=== PATIENT | male | born 1990 | race Caucasian/White ===

== ENCOUNTER 2022-08-29 17:06 | Emergency (ER) | payer OTHER ==
[~2022-08-29] VITALS: Ht 182.8 cm; Wt 88.5 kg
[~2022-08-29 17:06] MED LIST: AZIT500T2 PO; PRM50SU RC; SLMFT1E
[2022-08-29] MEDS ORDERED: LORazepam 0.5 MG (ATIVAN) TABLET PO ONE (18:30)
--- NOTE | 2022-08-29 18:34 | ED Abdominal Pain ---
General Chief Complaint: Abdominal/GI Problems Stated Complaint: CONSTIPATION Nursing Triage Note: PT AMB TO TRIAGE WITH COMPLAINT OF NOT BEING ABLE TO POOP. STATES HAS NOT HAD A GOOD BOWEL MOVEMENT FOR 3 WEEKS. STATES TOOK MIRALAX AND HAD A LITTLE BIT OF STOOL TODAY. STATES HAD BLOOD WORK AT [facility] AND WAS SENT TO ER FOR FURTHER EVALUATION Source of Information: Patient Exam Limitations: No Limitations (DARI GARCIA) History of Present Illness Date Seen by Provider: Aug 29, 2022 Time Seen by Provider: 18:31 Initial Comments Patient is a 32-year-old male who presents to ED with generalized abdominal pain. Described as cramping intermittently. States he has not had a good bowel movement over the past 3 weeks. patient had a small bowel movement this morning. Patient described as chicken nuggets. Patient states he has been taking MiraLAX, Dulcolax and even a suppository without much improvement. Typically MiraLAX will result in a small bowel movement. States he feels distended. Had lab work done 3 days ago which was unremarkable. Was recommended to the ER for further evaluation. Denies fever, chest pain, cough, shortness of breath, history inflammatory bowel disease, headache, dizziness, visual changes. Family history of cancer. Reports normal urination. Denies nausea, vomiting. Patient is able to produce some bowel movements but states it is hard (DARI GARCIA) Allergies and Home Medications Allergies Coded Allergies: No Known Drug Allergies (Unverified , 08/29/22) Patient Home Medication List Home Medication List Reviewed: Yes (DARI GARCIA) Review of Systems Review of Systems Constitutional: No chills, No diaphoresis, No malaise, No weakness EENTM: No Double Vision, No Eye Pain Respiratory: Denies Cough, Denies Orthopnea Cardiovascular: Denies Chest Pain Gastrointestinal: Abdominal Pain, Constipated; Denies Diarrhea, Denies Nausea, Denies Vomiting Genitourinary: Denies Burning, Denies Discharge Musculoskeletal: No back pain, No joint pain Skin: No change in color, No change in hair/nails Psychiatric/Neurological: Denies Depressed (DARI GARCIA) All Other Systems Reviewed Negative Unless Noted: Yes (DARI GARCIA) Past Utqvxow-Gmxblc-Wmgsgd Hx Patient Social History Tobacco Use?: No Use of E-Cig and/or Vaping dev: No Substance use?: No Alcohol Use?: No (DARI GARCIA) Physical Exam Vital Signs Vital Signs - First Documented 08/29/22 08/29/22 17:20 21:16 Temp 36.7 Pulse 122 Resp 20 B/P (MAP) 131/80 (97) Pulse Ox 97 O2 Delivery Room Air (BRUCE WELLSA Frank DO) Vital Signs Capillary Refill : Less Than 3 Seconds (DARI GARCIA) Height/Weight/BMI Height: '" Weight: lbs. oz. kg; 26.00 BMI Method: General Appearance: WD/WN, no apparent distress HEENT: PERRL/EOMI, normal ENT inspection, TMs normal, pharynx normal Neck: non-tender, full range of motion, supple Respiratory: chest non-tender, lungs clear, normal breath sounds, no respiratory distress, no accessory muscle use Cardiovascular: regular rate, rhythm, no edema Gastrointestinal: normal bowel sounds, non tender, soft, no organomegaly, other (Distended) Extremities: normal range of motion, non-tender, normal inspection, no pedal edema, no calf tenderness Back: normal inspection, no CVA tenderness, no vertebral tenderness ( DARI GARCIA) Progress/Results/Core Measures Results/Orders Lab Results Laboratory Tests Test 08/29/22 18:51 08/29/22 20:00 Range/Units White Blood Count 9.8 4.3-11.0 10^3/uL Red Blood Count 5.38 4.30-5.52 10^6/uL Hemoglobin 14.6 13.3-17.7 g/dL Hematocrit 45 40-54 % Mean Corpuscular Volume 83 80-99 fL Mean Corpuscular Hemoglobin 27 25-34 pg Mean Corpuscular Hemoglobin Concent 33 32-36 g/dL Red Cell Distribution Width 12.8 10.0-14.5 % Platelet Count 271 130-400 10^3/uL Mean Platelet Volume 9.7 9.0-12.2 fL Immature Granulocyte % (Auto) 0 % Neutrophils (%) (Auto) 74 42-75 % Lymphocytes (%) (Auto) 13 12-44 % Monocytes (%) (Auto) 10 0-12 % Eosinophils (%) (Auto) 2 0-10 % Basophils (%) (Auto) 1 0-10 % Neutrophils # (Auto) 7.2 1.8-7.8 10^3/uL Lymphocytes # (Auto) 1.3 1.0-4.0 10^3/uL Monocytes # (Auto) 1.0 0.0-1.0 10^3/uL Eosinophils # (Auto) 0.2 0.0-0.3 10^3/uL Basophils # (Auto) 0.1 0.0-0.1 10^3/uL Immature Granulocyte # (Auto) 0.0 0.0-0.1 10^3/uL Sodium Level 137 135-145 MMOL/L Potassium Level 3.9 3.6-5.0 MMOL/L Chloride Level 100 98-107 MMOL/L Carbon Dioxide Level 23 21-32 MMOL/L Anion Gap 14 5-14 MMOL/L Blood Urea Nitrogen 8 7-18 MG/DL Creatinine 0.88 0.60-1.30 MG/DL Estimat Glomerular Filtration Rate 119 BUN/Creatinine Ratio 9 Glucose Level 84 70-105 MG/DL Calcium Level 9.6 8.5-10.1 MG/DL Corrected Calcium 9.4 8.5-10.1 MG/DL Total Bilirubin 0.5 0.1-1.0 MG/DL Aspartate Amino Transf (AST/SGOT) 24 5-34 U/L Alanine Aminotransferase (ALT/SGPT) 24 0-55 U/L Alkaline Phosphatase 127 40-136 U/L Total Protein 7.7 6.4-8.2 GM/DL Albumin 4.2 3.2-4.5 GM/DL Lipase 42 8-78 U/L Urine Color YELLOW Urine Clarity CLEAR Urine pH 6.0 5-9 Urine Specific [place] 1.010 L 1.016-1.022 Urine Protein TRACE H NEGATIVE Urine Glucose (UA) NEGATIVE NEGATIVE Urine Ketones 2+ H NEGATIVE Urine Nitrite NEGATIVE NEGATIVE Urine Bilirubin 1+ H NEGATIVE Urine Urobilinogen 2.0 < = 1.0 MG/DL Urine Leukocyte Esterase NEGATIVE NEGATIVE Urine RBC (Auto) NEGATIVE NEGATIVE Urine RBC NONE /HPF Urine WBC NONE /HPF Urine Squamous Epithelial Cells NONE /HPF Urine Crystals NONE /LPF Urine Bacteria TRACE /HPF Urine Casts NONE /LPF Urine Mucus NEGATIVE /LPF Urine Culture Indicated NO (RUSSELL,JENS K DO) Vital Signs/I&O 08/29/22 08/29/22 17:20 21:16 Temp 36.7 Pulse 122 108 Resp 20 16 B/P (MAP) 131/80 (97) 123/78 Pulse Ox 97 98 O2 Delivery Room Air Room Air (JENS WELLS DO) Blood Pressure Mean: 97 Departure Communication (PCP) Patient presents ED with abdominal distention, decreased bowel movements and not feeling well. He states he has not been eating as much over the past several weeks. Has been using laxatives to help with bowel movements. Patient on arrival distended abdomen. Refused rectal exam. Difficulty initially obtaining lab work but did agree. States he had lab work performed few days ago which was unremarkable. Discussed lab work, CT abdomen pelvis secondary to distended abdomen. Denies any chest pain, cough, fever. No focal neural deficits. CBC, CMP, lipase unremarkable. Urinalysis was negative for infection. CT abdomen pelvis concerning for malignancy. Denies of any scrotum pain, scrotum swelling. 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 Patient was discussed with hospitalist Dr. Pierce regarding admission for further work-up. Would not be able to get a biopsy over the weekend. Patient was discussed with Dr. Lacey general surgeon. Would be willing to do a liver biopsy next week. He may need a CT-guided biopsy by radiology. Recommended following up on Thursday. Recommend liquid diet at this time. Patient refused anything for pain. May consider continue the laxatives however suspect most of his decreased bowel movements are secondary to the cancer. Did not note any large amount of stool. Dr. Lacey recommended adding a CEA. Recommend CT scan of the chest which was unremarkable for any metastasis. (DARI GARCIA) Impression Primary Impression: Abdominal malignancy Disposition: 01 HOME, SELF-CARE Condition: Stable Departure-Patient Inst. Decision time for Depature: 21:08 (DARI GARCIA) Referrals: DANELLE LACEY DO NO,LOCAL PHYSICIAN (PCP) Primary Care Physician Patient Instructions: Constipation, Adult (DC) Add. Discharge Instructions: Recommend following up with Dr. Lacey on Thursday. Provided number and discharge. Pain medication as needed. Continue with laxatives. Liquid diet. If any worsening symptoms return back to ED All discharge instructions reviewed with patient and/or family. Voiced understanding. ATTENDING PHYSICIAN NOTE: I WAS PHYSICALLY PRESENT ER PHYSICIAN, BUT I WAS NOT INVOLVED IN ANY DECISION MAKING OR ANY CARE OF THIS PATIENT AND I AM NOT COLLABORATING PHYSICIAN. (JENS WELLS DO) DARI GARCIA Aug 29, 2022 18:34 JENS WELLS DO Aug 30, 2022 07:05
[2022-08-29] MEDS ORDERED: NS 100 ML (IVPB) BAG IV ONE (18:45)
[2022-08-29] MEDS ORDERED: HOLD METFORMIN - RECEIVED CONTRAST 20 ML VIAL IV SCH (18:45)
[2022-08-29] MEDS ORDERED: IOHEXOL 350 MG/ML 100 ML (OMNIPAQUE 350) VIAL IV ONE (18:45)
[2022-08-29 18:58] LABS: BASOPHILS # (AUTO) 0.1 10^3/uL (0.0-0.1); BASOPHILS % (AUTO) 1 % (0-10); EOSINOPHILS # (AUTO) 0.2 10^3/uL (0.0-0.3); EOSINOPHILS % (AUTO) 2 % (0-10); HEMATOCRIT 45 % (40-54); HEMOGLOBIN 14.6 g/dL (13.3-17.7); LYMPHOCYTES # (AUTO) 1.3 10^3/uL (1.0-4.0); LYMPHOCYTES % (AUTO) 13 % (12-44); MEAN CORPUSCULAR HEMOGLOBIN 27 pg (25-34); MEAN CORPUSCULAR HGB CONC 33 g/dL (32-36); MEAN CORPUSCULAR VOLUME 83 fL (80-99); MEAN PLATELET VOLUME 9.7 fL (9.0-12.2); MONOCYTES % (AUTO) 10 % (0-12); NEUTROPHILS # (AUTO) 7.2 10^3/uL (1.8-7.8); NEUTROPHILS % (AUTO) 74 % (42-75); PLATELET COUNT 271 10^3/uL (130-400); WHITE BLOOD COUNT 9.8 10^3/uL (4.3-11.0)
[2022-08-29 19:07] LABS: ALBUMIN 4.2 GM/DL (3.2-4.5); POTASSIUM 3.9 MMOL/L (3.6-5.0)
[2022-08-29 19:09] LABS: CALCIUM 9.6 MG/DL (8.5-10.1)
[2022-08-29 19:10] LABS: TOTAL PROTEIN 7.7 GM/DL (6.4-8.2)
[2022-08-29 19:12] LABS: BILIRUBIN,TOTAL 0.5 MG/DL (0.1-1.0)
[2022-08-29 19:13] LABS: CREATININE SERUM 0.88 MG/DL (0.60-1.30)
--- NOTE | 2022-08-29 19:27 | Diagnostic Imaging Report ---
PROCEDURE: CT abdomen and pelvis with contrast. TECHNIQUE: Multiple contiguous axial images were obtained through the abdomen and pelvis after administration of intravenous contrast. Auto Exposure Controls were utilized during the CT exam to meet ALARA standards for radiation dose reduction. All CT scans use one or more of the following dose optimizing techniques: automated exposure control, MA and/or KvP adjustment based on patient size and exam type or iterative reconstruction. INDICATION: Abdominal pain COMPARISON: None FINDINGS: Extensive focal and confluent lesions throughout the spleen with large area of confluent mass measuring 8.7 x 12.1 cm (image 21 series 2). Multiple scattered hypodense lesions, approximately 10 lesions within the liver, largest measuring 1.2 cm. Extensive retroperitoneal and periportal lymphadenopathy with largest periportal lymph node measuring 3.3 x 2.1 cm and largest retroperitoneal lymph node measuring 2.9 x 2.2 cm. Enlarged left iliac chain lymph node measuring 2.4 x 1.5 cm. Enlarged presacral lymph nodes, largest measuring 2.2 x 2.0 cm. 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 The bowel is nondilated. There is thickening of the bowel at the ileocecal valve The urinary bladder is normal. The kidneys are normal. The aorta is normal. The pancreas is normal. The IVC is normal. The osseous structures demonstrate no lytic or sclerotic bone lesions. There is prominence of the seminal vesicles. The prostate is normal. IMPRESSION: Multiple lesions throughout the abdomen and pelvis concerning for cancer with possible metastatic disease or lymphoma. Extensive focal and confluent lesions throughout the spleen with largest confluent mass measuring 12.1 cm. Scattered approximately 10 small hypodense lesions throughout the liver concerning for metastatic lesions. Scattered lymphadenopathy throughout the abdomen and pelvis involving the periportal lymph nodes, retroperitoneal lymph nodes, left iliac chain lymph nodes, and presacral lymph nodes.. Diffuse thickening of the mesentery and moderate ascites concerning for peritoneal carcinomatosis. Thickening of small bowel in the region of the ileocecal valve may represent a small bowel mass or other infectious or inflammatory process. Enlargement of the seminal vesicles. Seminal vesicle mass cannot be excluded. Dictated by: Dictated on workstation # [id number]
[2022-08-29 20:10] LABS: CLARITY,URINE CLEAR; COLOR,URINE YELLOW; GLUCOSE, URINE (UA) NEGATIVE (NEGATIVE); KETONES,URINE 2+ (NEGATIVE); LEUKOCYTE ESTERASE ,URINE NEGATIVE (NEGATIVE); NITRITE,URINE NEGATIVE (NEGATIVE); PROTEIN,URINE TRACE (NEGATIVE)
[2022-08-29 20:22] LABS: BILIRUBIN,URINE 1+ (NEGATIVE)
[2022-08-29 20:23] LABS: BACTERIA,URINE TRACE /HPF
--- NOTE | 2022-08-29 20:39 | Diagnostic Imaging Report ---
PROCEDURE: CT chest with contrast only. TECHNIQUE: Multiple contiguous axial images were obtained through the chest after administration of intravenous contrast. Auto Exposure Controls were utilized during the CT exam to meet ALARA standards for radiation dose reduction. INDICATION: No pulmonary mass or consolidation. No airway lesions identified. No pleural mass, pleural effusion, or pneumothorax. 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 No lymphadenopathy within the chest. Normal heart size. No pericardial effusion. The osseous structures demonstrate no lytic or sclerotic bone lesion. Please see separately dictated report for findings in the abdomen or pelvis. Impression: No pulmonary mass or lymphadenopathy in the chest. 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 Please see separately dictated report for findings in the abdomen or pelvis. Dictated by: Dictated on workstation # [id number]
[2022-08-29 21:16] VITALS: BP 123/78
== END 2022-08-29 21:19 | disposition home or self-care (01) ==
LOC: EDUNIT# 17:06 → ER 17:10
DX: C76.2 Malignant neoplasm of abdomen (principal)
CPT/HCPCS: 36415; 71260; 74177; 80053; 81000; 82378; 83690; 85025

== ENCOUNTER 2022-09-02 11:43 | Day surgery (SDC) | payer OTHER ==
[~2022-09-02] VITALS: Ht 182.9 cm; Wt 85.7 kg
[2022-09-02] MEDS ORDERED: PROPOFOL INJECTION 50 ML IV ONE (14:15)
[2022-09-02] MEDS ORDERED: MIDAZOLAM 2 MG/2 ML (VERSED) VIAL ONE (14:15)
[2022-09-02] MEDS ORDERED: LACTATED RINGERS 1,000 ML IV ONE (14:24)
[2022-09-02] MEDS ORDERED: LACTATED RINGERS 1,000 ML IV STA (14:36)
[2022-09-02] MEDS ORDERED: FLEET ENEMA ADULT 1 EA BTL ONE (14:41)
[2022-09-02 14:44] VITALS: BP 130/102
[2022-09-02 14:45] VITALS: BP 113/63
--- NOTE | 2022-09-02 14:48 | Anesthesia-General Post-Op ---
MAC Patient Condition Mental Status/LOC: Same as Preop Cardiovascular: Satisfactory Nausea/Vomiting: Absent Respiratory: Satisfactory Pain: Controlled Complications: Absent Post Op Complications Complications None Follow Up Care/Instructions Patient Instructions None needed. Anesthesiology Discharge Order Discharge Order Patient is doing well, no complaints, stable vital signs, no apparent adverse anesthesia problems. No complications reported per nursing. DEBI RANKIN CRNA September 02, 2022 14:48
[2022-09-02 14:50] VITALS: BP 114/64
[2022-09-02 14:55] VITALS: BP 115/67
[2022-09-02 15:00] VITALS: BP 115/67
[2022-09-02 15:34] VITALS: BP 115/67
--- NOTE | 2022-09-02 22:04 | OPERATIVE REPORT ---
DATE OF SERVICE: 09/02/2022 PREOPERATIVE DIAGNOSES: Abdominal pain, abdominal masses. POSTOPERATIVE DIAGNOSIS: Extracolonic mass anterior to the rectum, rectal polyp. PROCEDURE: Flexible sigmoidoscopy with cold biopsy polypectomy. SURGEON: Danelle Brannon DO ANESTHESIA: Per EMPLOYMENT INTERVIEWER. ESTIMATED BLOOD LOSS: None. COMPLICATIONS: None. INDICATIONS: The patient is a 32-year-old male with abdominal masses, which had diffuse spread appearance by CAT scan. He also has abdominal pain, discussed trying to find pathology by flexible sigmoidoscopy, which he understands and wishes to proceed. Consent was signed in chart. DESCRIPTION OF PROCEDURE: The patient was taken to the endoscopy suite, placed in left lateral recumbent position. Timeout was performed. Digital rectal exam was performed anteriorly noting extracolonic palpable mass. Questionable if this was a prostatic from the prostate. Scope was inserted into the rectum and advanced through the rectum into the sigmoid, noting no other pathology. Scope was slowly retracted back, noting a rectal polyp, which cold biopsies were obtained and scope was then slowly retracted until completely removed. The patient tolerated the procedure well without complications. RECOMMENDATIONS: The patient is going for IR biopsy tomorrow possibly. If nothing obtainable, would then consider doing a rectal ultrasound-guided biopsy. Job ID: [id number] DocumentID: [id number] Dictated Date: 09/02/2022 14:53:07 Heatset Winder Operator Date: 09/02/2022 22:02:00 Dictated By: DANELLE BRANNON DO
== END 2022-09-02 15:34 | disposition home or self-care (01) ==
LOC: ENDO 11:43
PROVIDERS: ATTEND Surgery
DX: R10.9 Unspecified abdominal pain (principal); K62.1 Rectal polyp

== ENCOUNTER 2022-09-04 07:40 | Outpatient (CLI) | payer OTHER ==
[2022-09-04] VITALS (11 sets, daily range): BP systolic 113–132; BP diastolic 78–99
[2022-09-04] MEDS ORDERED: NS IV 1000 ML 1,000 ML IV STA (08:07)
[2022-09-04] MEDS ORDERED: fentaNYL INJ 100 MCG/2 ML AMP IVP ONE (08:15)
[2022-09-04] MEDS ORDERED: MIDAZOLAM 2 MG/2 ML (VERSED) VIAL IVP ONE (08:15)
[2022-09-04] MEDS ORDERED: NALOXONE 0.4 MG/ML 1 ML (NARCAN) VIAL IVP PRN (08:15)
[2022-09-04] MEDS ORDERED: LIDOCAINE 1% INJ 10 ML VIAL INJ ONE (08:15)
[2022-09-04] MEDS ORDERED: FLUMAZENIL (ROMAZICON) 0.1 MG/ML 10 ML VIAL IV ONE (08:15)
[2022-09-04 08:27] LABS: HEMATOCRIT 43 % (40-54); HEMOGLOBIN 14.2 g/dL (13.3-17.7); MEAN CORPUSCULAR HEMOGLOBIN 27 pg (25-34); MEAN CORPUSCULAR HGB CONC 33 g/dL (32-36); MEAN CORPUSCULAR VOLUME 82 fL (80-99); MEAN PLATELET VOLUME 10.4 fL (9.0-12.2); PLATELET COUNT 309 10^3/uL (130-400); WHITE BLOOD COUNT 9.5 10^3/uL (4.3-11.0)
[2022-09-04 08:42] LABS: INR 1.1 (0.8-1.4); PROTHROMBIN TIME PATIENT 14.2 SEC (12.2-14.7)
[2022-09-04] MEDS ORDERED: HYDROcodone/APAP 5 MG/325 MG (LORTAB) TAB PO PRN (10:15)
--- NOTE | 2022-09-04 10:20 | Pre-Op Note & Conscious Sedat ---
Pre-Operative Progress Note Date of Available H&P: September 04, 2022 Date H&P Reviewed: September 04, 2022 Time H&P Reviewed: 08:00 Pre-Op Diagnosis: abdominal mass Moderate Sedation PreProcedure Time 08:00 ASA Score 2 Airway Lungs Heart ASA score ASA 1: a normal healthy patient ASA 2: a patient with a mild systemic disease (mid diabetes, controlled hypertension, obesity ASA 3: a patient with a severe systemic disease that limits activity (angina, COPD, prior Myocardial infarction) ASA 4: a patient with an incapacitating disease that is a constant threat to life (CHF, renal failure) ASA 5: a moribund patient not expected to survive 24 hrs. (ruptured aneurysm) ASA 6: a declared brain- patient whose organs are being harvested. For emergent operations, add the letter E after the classification Mallampati Classification Grade 2 Sedation Plan Analgesia, Amnesia, Plan communicated to team members, Discussed options with patient/fam, Discussed risks with patient/fam The patient is an appropriate candidate to undergo the planned procedure, sedation, and anesthesia. The patient immediately re-assessed prior to indication. RUDY SLAUGHTER MD September 04, 2022 10:20
--- NOTE | 2022-09-04 10:41 | Diagnostic Imaging Report ---
INDICATION: Abdominal mass. Patient presents for CT-guided biopsy. TECHNIQUE: All CT scans use one or more of the following dose optimizing techniques: automated exposure control, MA and/or KvP adjustment based on patient size and exam type or iterative reconstruction. Patient brought to the CT suite placed on table in the supine position. Axial imaging through the abdomen and pelvis was performed evaluate appropriate entry site. Procedure was performed utilizing conscious sedation with radiology nursing and constant patient monitoring. Patient was given a total of 50 mg of fentanyl intravenously and 1 mg of Versed intravenously. Total procedure time is approximately 5 minutes. 18-gauge coaxial Temno needle was advanced from a right lower quadrant approach into the abnormal infiltrative process in the right abdomen, lateral to the colon. Multiple core biopsies were then obtained. The needle was removed and hemostasis was obtained using manual compression. Patient tolerated the procedure well and left department in stable condition. IMPRESSION: Successful CT-guided biopsy of the infiltrative masslike density in the right lower abdomen, utilizing conscious sedation. Pathology results are currently pending. Dictated by: Dictated on workstation # [id number]
== END 2022-09-04 12:25 | disposition home or self-care (01) ==
LOC: SDC 07:40
PROVIDERS: ATTEND Surgery
DX: R19.00 Intra-abdominal and pelvic swelling, mass and lump, unspecified site (principal)
CPT/HCPCS: 36415; 77012; 85027; 85610; 85730; 99156

== ENCOUNTER 2022-09-11 13:15 | Outpatient (CLI) | payer SELFPAY ==
[~2022-09-11] VITALS: Ht 182.8 cm; Wt 85.7 kg
== END 2022-09-11 15:53 | disposition home or self-care (01) ==
LOC: PREOP 13:15
PROVIDERS: ATTEND Surgery
DX: Z01.818 Encounter for other preprocedural examination (principal)

== ENCOUNTER 2022-09-12 10:07 | Day surgery (SDC) | payer OTHER ==
[~2022-09-12] VITALS: Ht 182.8 cm; Wt 85.7 kg
[2022-09-12] VITALS (7 sets, daily range): BP systolic 112–129; BP diastolic 77–90
[2022-09-12] MEDS ORDERED: LACTATED RINGERS 1,000 ML IV PRN (11:00)
[2022-09-12] MEDS ORDERED: ceFAZolin INJECTION 2,000 MG in NS (IVPB) 50 ML IV ONE (11:00)
[2022-09-12] MEDS ORDERED: BUP/EPI 0.5% 1:200,000 (SENSORCAINE) 30 ML VIAL ONE (11:10)
[2022-09-12] MEDS ORDERED: HEParin (CENTRAL IV FLUSH) 500 UNIT/5 ML SYR ONE (11:10)
[2022-09-12] MEDS ORDERED: 0.9% SODIUM CHLORIDE PF INJ 20 ML VIAL ONE (11:10)
[2022-09-12] MEDS ORDERED: MIDAZOLAM 2 MG/2 ML (VERSED) VIAL ONE (11:34)
[2022-09-12] MEDS ORDERED: PROPOFOL INJECTION 50 ML IV ONE (11:34)
--- NOTE | 2022-09-12 12:46 | Progress Note-Pre Operative ---
Pre-Operative Progress Note Date H&P Reviewed: September 12, 2022 Time H&P Reviewed: 12:45 History & Physical: H&P Reviewed, Patient Examed, No changes noted Pre-Operative Diagnosis: NEUROENDOCRINE TUMOR DANELLE LACEY DO September 12, 2022 12:46
--- NOTE | 2022-09-12 13:34 | Discharge Inst-Simple/Standard ---
Discharge Inst-Standard Patient Instructions/Follow Up Plan of Care/Instructions/FU: 2 weeks taylor Activity as Tolerated: No Discharge Diet: Regular Diet Other Inst to Patient Follow up Appt: Make appointment for 2 week. Instructions: No lifting greater than 10 pounds. No strenuous activity. May shower in 24 hours, no tub bath or soaking. Use incentive spirometer at home as directed. No Smoking Skin/Wound Care: You have special glue over your incision that will fall off on it's own. Ice pack on 15 min and off 30 min and repeat for first 48 hours. Symptoms to Report: Appetite Changes, Extremity Discoloration, Numbness/Tingling, Swelling Increased, Bleeding Excessive, Eyesight Changes, Pain Increased, Urine Color Change, Constipation(Persistent), Fever over 101 degree F, Pain/Pressure in chest, Urinating Difficulty, Cough Up/Vomit Blood, Heart Beat Irreg/Pounding, Pain/Pressure in jaw, Vaginal Bleeding Increase, Cramps in feet or legs, Lightheadedness, Pain/Pressure in shoulder, Diarrhea(Persistent), Memory Changes Suddenly, Questions/Concerns, Weight gain consecutive days, Dizziness/Fainting, Nausea/Vomiting, Shortness of Breath, Weight gain over 2 pounds If questions or concerns contact your physician Or seek help at emergency department. DANELLE LACEY DO September 12, 2022 13:34
--- NOTE | 2022-09-12 13:36 | Progress Note-Post Operative ---
Post-Operative Progess Note Surgeon (s)/Outdoor Landscape Architect (s) Surgeon DANELLE LACEY DO Outdoor Landscape Architect: na Pre-Operative Diagnosis NEUROENDOCRINE TUMOR Post-Operative Diagnosis same Procedure & Operative Findings Date of Procedure 09/12/22 Procedure Performed/Findings PROCEDURE: Right internal jugular port placement using ultrasound guidance. COMPLICATIONS: None. INDICATIONS: The patient is a 32 year old male with neuroendocrine tumor. Patient understands the risks and benefits of port placement and wished to proceed with the procedure. Consent was signed on the chart. PROCEDURE: The patient was taken to the operating suite, was prepped and draped in the sterile fashion. A surgical pause was performed. Ultrasound was used to locate the internal jugular vein. Once located anesthetic was infiltrated above it. Using micro-access kit, the right internal vein was accessed. Dark nonpulsatile blood was withdrawn. The wire was inserted. Fluoroscopy assured proper placement. The needle was removed. The micro-access dilator was advanced over the wire and the wire was removed. The regular wire was inserted and fluoroscopy assured proper placement. The wire was then secured. Local anesthetic was used to anesthetize from the neck for tunneling down to the right chest and for pocket creation. A 15 blade scalpel was used to make an incision over the right chest. Cautery was used to dissect down to the pectoral fascia. A pocket was created with blunt dissection. The dilator sheath was then advanced over the wire under fluoroscopy and the dilator and wire were removed. The Groshong catheter was inserted through the sheath and the sheath was then removed. The Groshong wire was removed. The catheter was then tunneled to the right chest pocket. Fluoroscopy was used to cut to length and this was then attached to the port which was then placed within the pocket. The port was then accessed without difficulty. It was then flushed with saline and then heparin. The subcutaneous tissues were then reapproximated using 3-0 Vicryl. The areas were then washed and dried. Skin Affix was placed over incision. The insertion point of the neck Skin Affix was placed over the incision. The patient tolerated the procedure well without complication and was taken to recovery room in stable condition. Chest x-ray is pending. Anesthesia Type mac c local Estimated Blood Loss Estimated blood loss (mL): minimal Specimens/Packing Specimens Removed DANELLE Kunz DO September 12, 2022 13:35
[2022-09-12] MEDS ORDERED: ONDANSETRON 4 MG/2 ML (SDV) Z0FRAN IVP PRN (13:45)
[2022-09-12] MEDS ORDERED: morphine INJ 10 MG/ML 1ML (SYR OR VIAL) IVP ONE (13:45)
--- NOTE | 2022-09-12 13:56 | Anesthesia-General Post-Op ---
MAC Patient Condition Mental Status/LOC: Same as Preop Cardiovascular: Satisfactory Nausea/Vomiting: Absent Respiratory: Satisfactory Pain: Controlled Complications: Absent Post Op Complications Complications None Follow Up Care/Instructions Patient Instructions None needed. Anesthesiology Discharge Order Discharge Order Patient is awake and doing well, no complaints, stable vital signs, no apparent adverse anesthesia problems. No complications reported per nursing. NILESH CHOWDARY DO September 12, 2022 13:56
--- NOTE | 2022-09-12 13:56 | Diagnostic Imaging Report ---
CHEST 1 VIEW, AP/PA ONLY INDICATION: s/p port. COMPARISON: None. FINDINGS: Support devices: Interval placement of right-sided portacatheter with tip projecting over the SVC. Lungs: Low lung volume. No focal consolidation. Stable pulmonary vasculature. Pleura: No pleural effusion or pneumothorax. Heart and Mediastinum: Cardiomediastinal silhouette and great vessels of the thorax are stable. Osseous Structures and Soft Tissues: No acute osseous abnormality. Normal soft tissues. IMPRESSION: No acute cardiopulmonary process. Dictated by: Dictated on workstation # [id number]
--- NOTE | 2022-09-12 16:05 | Diagnostic Imaging Report ---
INDICATION: Port placement. Single intraprocedural images right upper chest Fluoroscopy Time: 24.5 seconds FINDINGS: The hospital radiology department provided fluoroscopic imaging in support of an interventional procedure. No radiologist involvement and/or interpretation. Please reference the operating provider's procedure note. IMPRESSION: Intraprocedural technical imaging provided. Dictated by: Dictated on workstation # [id number]
== END 2022-09-12 14:44 | disposition home or self-care (01) ==
LOC: SDC 10:07
PROVIDERS: ATTEND Surgery
DX: C7A.1 Malignant poorly differentiated neuroendocrine tumors (principal); C80.0 Disseminated malignant neoplasm, unspecified
CPT/HCPCS: 36561; 71045; 76000; 87081; C1788

== ENCOUNTER 2022-09-30 09:53 | Outpatient (RCR) | payer MEDICAID, OTHER ==
[2022-09-10 14:31] LABS: BASOPHILS # (AUTO) 0.1 10^3/uL (0.0-0.1); BASOPHILS % (AUTO) 1 % (0-10); EOSINOPHILS # (AUTO) 0.2 10^3/uL (0.0-0.3); EOSINOPHILS % (AUTO) 2 % (0-10); HEMATOCRIT 44 % (40-54); HEMOGLOBIN 14.2 g/dL (13.3-17.7); LYMPHOCYTES # (AUTO) 0.9 10^3/uL (1.0-4.0); LYMPHOCYTES % (AUTO) 9 % (12-44); MEAN CORPUSCULAR HEMOGLOBIN 27 pg (25-34); MEAN CORPUSCULAR HGB CONC 32 g/dL (32-36); MEAN CORPUSCULAR VOLUME 83 fL (80-99); MEAN PLATELET VOLUME 9.8 fL (9.0-12.2); MONOCYTES # (AUTO) 0.9 10^3/uL (0.0-1.0); MONOCYTES % (AUTO) 9 % (0-12); NEUTROPHILS # (AUTO) 7.7 10^3/uL (1.8-7.8); NEUTROPHILS % (AUTO) 80 % (42-75); PLATELET COUNT 310 10^3/uL (130-400); WHITE BLOOD COUNT 9.7 10^3/uL (4.3-11.0)
[2022-09-10 14:51] LABS: ALBUMIN 3.9 GM/DL (3.2-4.5); BILIRUBIN,TOTAL 0.4 MG/DL (0.1-1.0); CREATININE SERUM 0.94 MG/DL (0.60-1.30); POTASSIUM 3.8 MMOL/L (3.6-5.0); TOTAL PROTEIN 7.1 GM/DL (6.4-8.2)
[2022-09-15 10:19] LABS: BASOPHILS # (AUTO) 0.1 10^3/uL (0.0-0.1); BASOPHILS % (AUTO) 1 % (0-10); EOSINOPHILS # (AUTO) 0.2 10^3/uL (0.0-0.3); EOSINOPHILS % (AUTO) 2 % (0-10); HEMATOCRIT 43 % (40-54); HEMOGLOBIN 13.8 g/dL (13.3-17.7); LYMPHOCYTES # (AUTO) 0.9 10^3/uL (1.0-4.0); LYMPHOCYTES % (AUTO) 8 % (12-44); MEAN CORPUSCULAR HEMOGLOBIN 27 pg (25-34); MEAN CORPUSCULAR HGB CONC 32 g/dL (32-36); MEAN CORPUSCULAR VOLUME 83 fL (80-99); MEAN PLATELET VOLUME 9.8 fL (9.0-12.2); MONOCYTES # (AUTO) 1.1 10^3/uL (0.0-1.0); MONOCYTES % (AUTO) 10 % (0-12); NEUTROPHILS # (AUTO) 8.9 10^3/uL (1.8-7.8); NEUTROPHILS % (AUTO) 80 % (42-75); PLATELET COUNT 322 10^3/uL (130-400); WHITE BLOOD COUNT 11.2 10^3/uL (4.3-11.0)
[2022-09-15 10:38] LABS: ALBUMIN 3.8 GM/DL (3.2-4.5); BILIRUBIN,TOTAL 0.4 MG/DL (0.1-1.0); CALCIUM 9.5 MG/DL (8.5-10.1); CREATININE SERUM 0.86 MG/DL (0.60-1.30); POTASSIUM 3.6 MMOL/L (3.6-5.0); TOTAL PROTEIN 7.2 GM/DL (6.4-8.2)
[2022-09-22 09:27] LABS: BASOPHILS # (AUTO) 0.1 10^3/uL (0.0-0.1); BASOPHILS % (AUTO) 1 % (0-10); EOSINOPHILS # (AUTO) 0.2 10^3/uL (0.0-0.3); EOSINOPHILS % (AUTO) 3 % (0-10); HEMATOCRIT 39 % (40-54); HEMOGLOBIN 12.7 g/dL (13.3-17.7); LYMPHOCYTES # (AUTO) 0.8 10^3/uL (1.0-4.0); LYMPHOCYTES % (AUTO) 15 % (12-44); MEAN CORPUSCULAR HEMOGLOBIN 27 pg (25-34); MEAN CORPUSCULAR HGB CONC 33 g/dL (32-36); MEAN CORPUSCULAR VOLUME 81 fL (80-99); MEAN PLATELET VOLUME 9.7 fL (9.0-12.2); MONOCYTES # (AUTO) 0.1 10^3/uL (0.0-1.0); MONOCYTES % (AUTO) 2 % (0-12); NEUTROPHILS # (AUTO) 4.1 10^3/uL (1.8-7.8); NEUTROPHILS % (AUTO) 78 % (42-75); PLATELET COUNT 216 10^3/uL (130-400); WHITE BLOOD COUNT 5.2 10^3/uL (4.3-11.0)
[2022-09-22 09:42] LABS: ALBUMIN 3.8 GM/DL (3.2-4.5); BILIRUBIN,TOTAL 0.4 MG/DL (0.1-1.0); CALCIUM 9.5 MG/DL (8.5-10.1); CREATININE SERUM 0.74 MG/DL (0.60-1.30); POTASSIUM 4.1 MMOL/L (3.6-5.0)
[~2022-09-30] VITALS: Ht 182.9 cm; Wt 85.3 kg
[~2022-09-30 09:53] MED LIST changes: +CARBOPLATIN IV SCH; +D5W IV SCH; +ETOPOSIDE IV SCH; +FOSAPREPITANT (CANCER CENTER) 150 MG in NS (IVPB) CANCER CENTER ONLY 150 ML IV SCH; +HEParin (CENTRAL IV FLUSH) 500 UNIT/5 ML SYR IV PRN; +NORMAL SALINE IV SCH; +NS IV 1000 ML (CANCER CTR) IV SCH; +PALONOSETRON HCL 0.25 MG, dexAMETHasone INJECTION 20 MG in NS (IVPB) 50 ML IV SCH; +dexAMETHasone INJECTION 20 MG in NS (IVPB) 50 ML IV SCH
[2022-09-30 10:16] LABS: BASOPHILS % (AUTO) 1 % (0-10); EOSINOPHILS # (AUTO) 0.1 10^3/uL (0.0-0.3); EOSINOPHILS % (AUTO) 3 % (0-10); HEMATOCRIT 38 % (40-54); HEMOGLOBIN 12.3 g/dL (13.3-17.7); LYMPHOCYTES # (AUTO) 0.7 10^3/uL (1.0-4.0); LYMPHOCYTES % (AUTO) 39 % (12-44); MEAN CORPUSCULAR HEMOGLOBIN 27 pg (25-34); MEAN CORPUSCULAR HGB CONC 33 g/dL (32-36); MEAN CORPUSCULAR VOLUME 83 fL (80-99); MEAN PLATELET VOLUME 9.7 fL (9.0-12.2); MONOCYTES # (AUTO) 0.2 10^3/uL (0.0-1.0); MONOCYTES % (AUTO) 11 % (0-12); NEUTROPHILS # (AUTO) 0.9 10^3/uL (1.8-7.8); NEUTROPHILS % (AUTO) 46 % (42-75); PLATELET COUNT 145 10^3/uL (130-400); WHITE BLOOD COUNT 1.8 10^3/uL (4.3-11.0)
[2022-09-30 10:42] LABS: BILIRUBIN,TOTAL 0.4 MG/DL (0.1-1.0); CALCIUM 9.5 MG/DL (8.5-10.1); CREATININE SERUM 0.84 MG/DL (0.60-1.30); POTASSIUM 3.8 MMOL/L (3.6-5.0); TOTAL PROTEIN 7.2 GM/DL (6.4-8.2)
== END 2022-10-01 | disposition home or self-care (01) ==
LOC: ONC 09:53
PROVIDERS: ATTEND Internal Medicine Hematology & Oncology
DX: Z51.11 Encounter for antineoplastic chemotherapy (principal); C7A.1 Malignant poorly differentiated neuroendocrine tumors
CPT/HCPCS: 36415; 36591; 80053; 83615; 84100; 84550; 85025; 96374; 96375; 96413; 96415

== ENCOUNTER → 2022-10-16 | Outpatient (CLI) | payer MEDICAID, OTHER ==
[~2022-10-16] MED LIST changes: -CARBOPLATIN IV SCH; -D5W IV SCH; -ETOPOSIDE IV SCH; -FOSAPREPITANT (CANCER CENTER) 150 MG in NS (IVPB) CANCER CENTER ONLY 150 ML IV SCH; -HEParin (CENTRAL IV FLUSH) 500 UNIT/5 ML SYR IV PRN; -NORMAL SALINE IV SCH; -NS IV 1000 ML (CANCER CTR) IV SCH; -PALONOSETRON HCL 0.25 MG, dexAMETHasone INJECTION 20 MG in NS (IVPB) 50 ML IV SCH; -dexAMETHasone INJECTION 20 MG in NS (IVPB) 50 ML IV SCH
--- NOTE | 2022-10-16 15:00 | Diagnostic Imaging Report ---
INDICATION: Initial staging, malignant neoplasm of the peritoneum. Serum blood glucose level at the time of injection is 84 mg/dL. Patient was administered 10.5 mCi F-18 FDG intravenously in the left hand, and PET imaging was performed from the top of the skull to mid thighs. Noncontrast CT was also performed for attenuation correction and anatomic correlation. COMPARISON: No prior PET/CT studies are available for comparison. Comparison is made with prior CT from 08/29/2022. FINDINGS: There is symmetric activity throughout the brain. Soft tissues of the neck are unremarkable. No mediastinal hypermetabolism is seen. There does appear to be a hypermetabolic right internal mammary lymph node with an SUV max of 11.1. Mild uptake in the left hilar node has an SUV max of 5.3. There is a hypermetabolic mass in the right lobe of the liver near the dome with an SUV max of 8.3. There is hypermetabolism in the lanette hepatis as well as diffuse uptake involving the peritoneum with SUV max of 10.1. There is central retroperitoneal hypermetabolic lymphadenopathy. Aortocaval node has an SUV max of 15.2. Diffuse uptake involving abnormal soft tissue surrounding the spleen is noted. Diffuse abnormal uptake throughout the omentum and throughout the right abdomen is seen with SUV max of approximately 12.8. There are hypermetabolic common iliac lymph nodes. There is a hypermetabolic right obturator node. IMPRESSION: Diffuse hypermetabolism involving the peritoneum including numerous enlarged lymph nodes in the lanette hepatis and central retroperitoneum. There is also hypermetabolic lymphadenopathy in the right internal mammary chain. There is a hypermetabolic lesion in the dome of the liver. Patient does have a small left pleural effusion. Dictated by: Dictated on workstation # [id number]
== END ==
LOC: RAD 10:39
PROVIDERS: ATTEND Internal Medicine Hematology & Oncology
DX: K76.9 Liver disease, unspecified (principal); J90 Pleural effusion, not elsewhere classified; C48.2 Malignant neoplasm of peritoneum, unspecified; R59.9 Enlarged lymph nodes, unspecified
CPT/HCPCS: 78815; 82947; A9552

== ENCOUNTER 2022-10-27 08:42 | Outpatient (RCR) | payer MEDICAID, OTHER ==
[~2022-10-27] VITALS: Ht 182.8 cm; Wt 80.8 kg
[~2022-10-27 08:42] MED LIST changes: +CYCLOPHOSPHAMIDE IV SCH; +DOXORUBICIN HCL IV SCH; +FOSAPREPITANT (CANCER CENTER) 150 MG in NS (IVPB) CANCER CENTER ONLY 150 ML IV SCH; +HEParin (CENTRAL IV FLUSH) 500 UNIT/5 ML SYR IV PRN; +MESNA IV SCH; +MESNA PO SCH; +NS IV 1000 ML (CANCER CTR) IV SCH; +NS IV SCH; +PALONOSETRON HCL 0.25 MG, dexAMETHasone INJECTION 10 MG in NS (IVPB) 50 ML IV SCH; +[UNRECOGNIZED DRUG - OTHER] IV SCH; +vinCRIStine SULFATE 2 MG in NS (IVPB) 50 ML IV SCH
[2022-10-27 09:40] LABS: BASOPHILS # (AUTO) 0.1 10^3/uL (0.0-0.1); BASOPHILS % (AUTO) 1 % (0-10); EOSINOPHILS # (AUTO) 0.5 10^3/uL (0.0-0.3); EOSINOPHILS % (AUTO) 6 % (0-10); HEMATOCRIT 40 % (40-54); HEMOGLOBIN 12.8 g/dL (13.3-17.7); LYMPHOCYTES # (AUTO) 0.9 10^3/uL (1.0-4.0); LYMPHOCYTES % (AUTO) 12 % (12-44); MEAN CORPUSCULAR HEMOGLOBIN 27 pg (25-34); MEAN CORPUSCULAR HGB CONC 32 g/dL (32-36); MEAN CORPUSCULAR VOLUME 83 fL (80-99); MEAN PLATELET VOLUME 9.6 fL (9.0-12.2); MONOCYTES # (AUTO) 0.7 10^3/uL (0.0-1.0); MONOCYTES % (AUTO) 9 % (0-12); NEUTROPHILS # (AUTO) 5.6 10^3/uL (1.8-7.8); NEUTROPHILS % (AUTO) 72 % (42-75); PLATELET COUNT 146 10^3/uL (130-400); WHITE BLOOD COUNT 7.8 10^3/uL (4.3-11.0)
[2022-10-27 09:51] VITALS: BP 126/84
[2022-10-27 09:58] LABS: ALBUMIN 4.1 GM/DL (3.2-4.5); BILIRUBIN,TOTAL 0.6 MG/DL (0.1-1.0); CALCIUM 9.4 MG/DL (8.5-10.1); CREATININE SERUM 0.75 MG/DL (0.60-1.30); TOTAL PROTEIN 7.1 GM/DL (6.4-8.2)
[2022-10-27 10:03] LABS: BILIRUBIN,URINE NEGATIVE (NEGATIVE); CLARITY,URINE CLEAR; COLOR,URINE YELLOW; GLUCOSE, URINE (UA) NEGATIVE (NEGATIVE); KETONES,URINE NEGATIVE (NEGATIVE); LEUKOCYTE ESTERASE ,URINE NEGATIVE (NEGATIVE); NITRITE,URINE NEGATIVE (NEGATIVE); PROTEIN,URINE TRACE (NEGATIVE)
[2022-10-27 10:13] LABS: AMORPHOUS SEDIMENT,UR LARGE AMOR PHOSPHATE /LPF; BACTERIA,URINE NEGATIVE /HPF; RBC,URINE RARE /HPF
[2022-10-27] MEDS ORDERED: OLANZapine 5 MG ODT (ZyPREXA ZYDIS) PO ONE (10:26)
== END 2022-10-31 | disposition home or self-care (01) ==
LOC: ONC 08:42
PROVIDERS: ATTEND Internal Medicine Hematology & Oncology
DX: Z51.11 Encounter for antineoplastic chemotherapy (principal); Z45.2 Encounter for adjustment and management of vascular access device; C7A.1 Malignant poorly differentiated neuroendocrine tumors
CPT/HCPCS: 36591; 80053; 81000; 85025; 96367; 96375; 96413; 96417

== ENCOUNTER 2022-11-17 08:47 | Outpatient (RCR) | payer MEDICAID, OTHER ==
[2022-11-03 09:55] LABS: EOSINOPHILS # (AUTO) 0.3 10^3/uL (0.0-0.3); HEMATOCRIT 36 % (40-54); MEAN CORPUSCULAR VOLUME 82 fL (80-99)
[2022-11-03 09:57] LABS: BASOPHILS % (AUTO) 2 % (0-10); EOSINOPHILS % (AUTO) 19 % (0-10); HEMOGLOBIN 11.4 g/dL (13.3-17.7); LYMPHOCYTES # (AUTO) 0.3 10^3/uL (1.0-4.0); LYMPHOCYTES % (AUTO) 20 % (12-44); MEAN CORPUSCULAR HEMOGLOBIN 26 pg (25-34); MEAN CORPUSCULAR HGB CONC 32 g/dL (32-36); MEAN PLATELET VOLUME 10.4 fL (9.0-12.2); MONOCYTES # (AUTO) 0.1 10^3/uL (0.0-1.0); MONOCYTES % (AUTO) 9 % (0-12); NEUTROPHILS # (AUTO) 0.5 10^3/uL (1.8-7.8); NEUTROPHILS % (AUTO) 39 % (42-75); PLATELET COUNT 106 10^3/uL (130-400)
[2022-11-03 10:00] LABS: WHITE BLOOD COUNT 1.4 10^3/uL (4.3-11.0)
[2022-11-03 10:11] LABS: BILIRUBIN,TOTAL 0.5 MG/DL (0.1-1.0); CALCIUM 9.3 MG/DL (8.5-10.1); CREATININE SERUM 0.68 MG/DL (0.60-1.30); POTASSIUM 3.8 MMOL/L (3.6-5.0)
[2022-11-03 10:15] LABS: BILIRUBIN,URINE 1+ (NEGATIVE); CLARITY,URINE SL CLOUDY; COLOR,URINE AMBER; GLUCOSE, URINE (UA) NEGATIVE (NEGATIVE); KETONES,URINE NEGATIVE (NEGATIVE); LEUKOCYTE ESTERASE ,URINE NEGATIVE (NEGATIVE); NITRITE,URINE NEGATIVE (NEGATIVE); PROTEIN,URINE 1+ (NEGATIVE)
[2022-11-03 10:35] LABS: AMORPHOUS SEDIMENT,UR RARE AMOR URATES /LPF; BACTERIA,URINE NEGATIVE /HPF; RBC,URINE 0-2 /HPF; WBC,URINE 0-2 /HPF
[2022-11-11 09:56] LABS: HEMATOCRIT 36 % (40-54); LYMPHOCYTES # (AUTO) 0.6 10^3/uL (1.0-4.0); MEAN CORPUSCULAR VOLUME 81 fL (80-99)
[2022-11-11 09:58] LABS: BASOPHILS # (AUTO) 0.1 10^3/uL (0.0-0.1); BASOPHILS % (AUTO) 1 % (0-10); EOSINOPHILS % (AUTO) 0 % (0-10); HEMOGLOBIN 11.7 g/dL (13.3-17.7); LYMPHOCYTES % (AUTO) 8 % (12-44); MEAN CORPUSCULAR HEMOGLOBIN 26 pg (25-34); MEAN CORPUSCULAR HGB CONC 32 g/dL (32-36); MEAN PLATELET VOLUME 9.2 fL (9.0-12.2); MONOCYTES # (AUTO) 0.6 10^3/uL (0.0-1.0); MONOCYTES % (AUTO) 8 % (0-12); NEUTROPHILS # (AUTO) 5.5 10^3/uL (1.8-7.8); NEUTROPHILS % (AUTO) 73 % (42-75); PLATELET COUNT 126 10^3/uL (130-400); WHITE BLOOD COUNT 7.5 10^3/uL (4.3-11.0)
[2022-11-11 10:14] LABS: ALBUMIN 4.1 GM/DL (3.2-4.5); BILIRUBIN,TOTAL 0.3 MG/DL (0.1-1.0); CALCIUM 9.7 MG/DL (8.5-10.1); CREATININE SERUM 0.82 MG/DL (0.60-1.30); POTASSIUM 3.8 MMOL/L (3.6-5.0); TOTAL PROTEIN 7.2 GM/DL (6.4-8.2)
[2022-11-11 10:16] LABS: CLARITY,URINE CLEAR; COLOR,URINE YELLOW; GLUCOSE, URINE (UA) NEGATIVE (NEGATIVE); KETONES,URINE NEGATIVE (NEGATIVE); LEUKOCYTE ESTERASE ,URINE NEGATIVE (NEGATIVE); NITRITE,URINE NEGATIVE (NEGATIVE); PH,URINE 6.5 (5-9); PROTEIN,URINE 1+ (NEGATIVE)
[2022-11-11 10:27] LABS: BILIRUBIN,URINE 1+ (NEGATIVE)
[2022-11-11 10:29] LABS: BACTERIA,URINE NEGATIVE /HPF; CALCIUM OXALATE CRYSTALS,UR FEW /LPF; HYALINE CASTS, URINE RARE /LPF
[~2022-11-17] VITALS: Ht 182.9 cm; Wt 74.4 kg
[~2022-11-17 08:47] MED LIST changes: +PALONOSETRON HCL 0.25 MG, dexAMETHasone INJECTION 10 MG in NS (IVPB) 50 ML 50 ML IV SCH; -PALONOSETRON HCL 0.25 MG, dexAMETHasone INJECTION 10 MG in NS (IVPB) 50 ML IV SCH; +VINCRISTINE SULFATE IV SCH; +[UNRECOGNIZED DRUG - OTHER] IV SCH; -[UNRECOGNIZED DRUG - OTHER] IV SCH; -vinCRIStine SULFATE 2 MG in NS (IVPB) 50 ML IV SCH
[2022-11-17 09:00] VITALS: BP 130/79
[2022-11-17 09:12] LABS: BASOPHILS # (AUTO) 0.1 10^3/uL (0.0-0.1); BASOPHILS % (AUTO) 2 % (0-10); EOSINOPHILS % (AUTO) 0 % (0-10); HEMATOCRIT 36 % (40-54); HEMOGLOBIN 11.6 g/dL (13.3-17.7); LYMPHOCYTES # (AUTO) 0.6 10^3/uL (1.0-4.0); LYMPHOCYTES % (AUTO) 10 % (12-44); MEAN CORPUSCULAR HEMOGLOBIN 26 pg (25-34); MEAN CORPUSCULAR HGB CONC 32 g/dL (32-36); MEAN CORPUSCULAR VOLUME 82 fL (80-99); MEAN PLATELET VOLUME 9.4 fL (9.0-12.2); MONOCYTES # (AUTO) 0.6 10^3/uL (0.0-1.0); MONOCYTES % (AUTO) 9 % (0-12); NEUTROPHILS # (AUTO) 5.2 10^3/uL (1.8-7.8); NEUTROPHILS % (AUTO) 79 % (42-75); PLATELET COUNT 178 10^3/uL (130-400); WHITE BLOOD COUNT 6.5 10^3/uL (4.3-11.0)
[2022-11-17 09:39] LABS: ALBUMIN 4.1 GM/DL (3.2-4.5); BILIRUBIN,TOTAL 0.4 MG/DL (0.1-1.0); CALCIUM 9.5 MG/DL (8.5-10.1); CREATININE SERUM 0.77 MG/DL (0.60-1.30); POTASSIUM 3.6 MMOL/L (3.6-5.0)
[2022-11-17 10:04] LABS: BILIRUBIN,URINE NEGATIVE (NEGATIVE); CLARITY,URINE CLEAR; COLOR,URINE YELLOW; GLUCOSE, URINE (UA) NEGATIVE (NEGATIVE); KETONES,URINE NEGATIVE (NEGATIVE); LEUKOCYTE ESTERASE ,URINE NEGATIVE (NEGATIVE); NITRITE,URINE NEGATIVE (NEGATIVE); PROTEIN,URINE NEGATIVE (NEGATIVE)
[2022-11-17 10:13] LABS: AMORPHOUS SEDIMENT,UR RARE AMOR PHOSPHATE /LPF; BACTERIA,URINE NEGATIVE /HPF; SQUAMOUS EPITHELIAL CELL,UR RARE /HPF
== END 2022-12-01 | disposition home or self-care (01) ==
LOC: ONC 08:47
PROVIDERS: ATTEND Internal Medicine Hematology & Oncology
DX: Z51.11 Encounter for antineoplastic chemotherapy (principal); Z45.2 Encounter for adjustment and management of vascular access device; C7A.1 Malignant poorly differentiated neuroendocrine tumors
CPT/HCPCS: 36591; 80053; 81000; 85025; 96360; 96361; 96367; 96375; 96413; 96417

== ENCOUNTER 2022-12-30 07:38 | Outpatient (RCR) | payer MEDICAID, OTHER ==
[2022-12-02 11:06] LABS: BASOPHILS # (AUTO) 0.1 10^3/uL (0.0-0.1); BASOPHILS % (AUTO) 1 % (0-10); EOSINOPHILS # (AUTO) 0.1 10^3/uL (0.0-0.3); EOSINOPHILS % (AUTO) 1 % (0-10); HEMATOCRIT 33 % (40-54); HEMOGLOBIN 10.6 g/dL (13.3-17.7); LYMPHOCYTES # (AUTO) 0.5 10^3/uL (1.0-4.0); LYMPHOCYTES % (AUTO) 7 % (12-44); MEAN CORPUSCULAR HEMOGLOBIN 27 pg (25-34); MEAN CORPUSCULAR HGB CONC 32 g/dL (32-36); MEAN CORPUSCULAR VOLUME 83 fL (80-99); MEAN PLATELET VOLUME 9.9 fL (9.0-12.2); MONOCYTES # (AUTO) 0.6 10^3/uL (0.0-1.0); MONOCYTES % (AUTO) 8 % (0-12); NEUTROPHILS # (AUTO) 5.4 10^3/uL (1.8-7.8); NEUTROPHILS % (AUTO) 77 % (42-75); PLATELET COUNT 106 10^3/uL (130-400); WHITE BLOOD COUNT 7.1 10^3/uL (4.3-11.0)
[2022-12-08 09:11] VITALS: BP 117/76
[2022-12-08 09:17] LABS: BASOPHILS # (AUTO) 0.1 10^3/uL (0.0-0.1); BASOPHILS % (AUTO) 2 % (0-10); EOSINOPHILS % (AUTO) 1 % (0-10); HEMATOCRIT 35 % (40-54); HEMOGLOBIN 10.9 g/dL (13.3-17.7); LYMPHOCYTES # (AUTO) 0.5 10^3/uL (1.0-4.0); LYMPHOCYTES % (AUTO) 9 % (12-44); MEAN CORPUSCULAR HEMOGLOBIN 27 pg (25-34); MEAN CORPUSCULAR HGB CONC 31 g/dL (32-36); MEAN CORPUSCULAR VOLUME 87 fL (80-99); MEAN PLATELET VOLUME 9.5 fL (9.0-12.2); MONOCYTES # (AUTO) 0.6 10^3/uL (0.0-1.0); MONOCYTES % (AUTO) 10 % (0-12); NEUTROPHILS # (AUTO) 4.9 10^3/uL (1.8-7.8); NEUTROPHILS % (AUTO) 79 % (42-75); PLATELET COUNT 156 10^3/uL (130-400); WHITE BLOOD COUNT 6.2 10^3/uL (4.3-11.0)
[2022-12-08] MEDS: NS IV 1000 ML (CANCER CTR) IV SCH ×2 (09:21→12:50)
[2022-12-08 09:35] LABS: ALBUMIN 4.2 GM/DL (3.2-4.5); BILIRUBIN,TOTAL 0.4 MG/DL (0.1-1.0); CALCIUM 9.2 MG/DL (8.5-10.1); CREATININE SERUM 0.74 MG/DL (0.60-1.30); POTASSIUM 3.8 MMOL/L (3.6-5.0); TOTAL PROTEIN 6.9 GM/DL (6.4-8.2)
[2022-12-08 09:43] LABS: CLARITY,URINE CLOUDY; COLOR,URINE YELLOW; GLUCOSE, URINE (UA) NEGATIVE (NEGATIVE); PROTEIN,URINE TRACE (NEGATIVE)
[2022-12-08 09:44] LABS: AMORPHOUS SEDIMENT,UR FEW AMOR PHOSPHATE /LPF; BACTERIA,URINE NEGATIVE /HPF; BILIRUBIN,URINE NEGATIVE (NEGATIVE); KETONES,URINE NEGATIVE (NEGATIVE); LEUKOCYTE ESTERASE ,URINE NEGATIVE (NEGATIVE); NITRITE,URINE NEGATIVE (NEGATIVE); RBC,URINE RARE /HPF; WBC,URINE RARE /HPF
[2022-12-08] MEDS: PALONOSETRON HCL 0.25 MG, dexAMETHasone sodium phosphate 10 MG in NS (IVPB) 50 ML 50 ML IV SCH (10:22)
[2022-12-08] MEDS: NS IV SCH ×2 (10:41→11:46)
[2022-12-08] MEDS: IFOSFAMIDE IV SCH (10:41)
[2022-12-08] MEDS: MESNA IV SCH (11:46)
[2022-12-08] MEDS: NORMAL SALINE IV SCH (12:04)
[2022-12-08] MEDS: ETOPOSIDE IV SCH (12:04)
[2022-12-08] MEDS: MESNA PO SCH (12:19)
[2022-12-09 09:32] VITALS: BP 120/70
[2022-12-09] MEDS: NS IV 1000 ML (CANCER CTR) IV SCH ×2 (09:42→12:37)
[2022-12-09] MEDS: NS IV SCH ×2 (10:12→10:30)
[2022-12-09] MEDS: MESNA IV SCH (10:12)
[2022-12-09] MEDS: IFOSFAMIDE IV SCH (10:30)
[2022-12-09] MEDS: MESNA PO SCH (11:01)
[2022-12-09] MEDS: ETOPOSIDE IV SCH (11:29)
[2022-12-09] MEDS: NORMAL SALINE IV SCH (11:29)
[2022-12-10 08:45] VITALS: BP 110/68
[2022-12-10] MEDS: NS IV 1000 ML (CANCER CTR) IV SCH ×2 (08:49→11:29)
[2022-12-10] MEDS: PALONOSETRON HCL 0.25 MG, dexAMETHasone sodium phosphate 10 MG in NS (IVPB) 50 ML 50 ML IV SCH (08:59)
[2022-12-10] MEDS: IFOSFAMIDE IV SCH (09:12)
[2022-12-10] MEDS: NS IV SCH ×2 (09:12→10:16)
[2022-12-10] MEDS: MESNA IV SCH (10:16)
[2022-12-10] MEDS: NORMAL SALINE IV SCH (10:48)
[2022-12-10] MEDS: ETOPOSIDE IV SCH (10:48)
[2022-12-10] MEDS: MESNA PO SCH (11:01)
[2022-12-11 09:41] VITALS: BP 105/65
[2022-12-11] MEDS: NS IV SCH ×2 (10:08→10:43)
[2022-12-11] MEDS: MESNA IV SCH (10:08)
[2022-12-11] MEDS: NS IV 1000 ML (CANCER CTR) IV SCH ×2 (10:39→12:14)
[2022-12-11] MEDS: IFOSFAMIDE IV SCH (10:43)
[2022-12-11] MEDS: ETOPOSIDE IV SCH (12:08)
[2022-12-11] MEDS: NORMAL SALINE IV SCH (12:08)
[2022-12-11] MEDS: MESNA PO SCH (12:13)
[2022-12-12] MEDS: NS IV 1000 ML (CANCER CTR) IV SCH ×2 (09:21→12:14)
[2022-12-12 09:33] VITALS: BP 100/64
[2022-12-12] MEDS: PALONOSETRON HCL 0.25 MG, dexAMETHasone sodium phosphate 10 MG in NS (IVPB) 50 ML 50 ML IV SCH (09:46)
[2022-12-12] MEDS: MESNA IV SCH (10:01)
[2022-12-12] MEDS: NS IV SCH ×2 (10:01→10:57)
[2022-12-12] MEDS: IFOSFAMIDE IV SCH (10:57)
[2022-12-12] MEDS: ETOPOSIDE IV SCH (12:01)
[2022-12-12] MEDS: NORMAL SALINE IV SCH (12:01)
[2022-12-12] MEDS: MESNA PO SCH (12:13)
[2022-12-16 10:05] LABS: BASOPHILS % (AUTO) 1 % (0-10); EOSINOPHILS % (AUTO) 1 % (0-10); HEMATOCRIT 31 % (40-54); HEMOGLOBIN 9.8 g/dL (13.3-17.7); LYMPHOCYTES # (AUTO) 0.1 10^3/uL (1.0-4.0); LYMPHOCYTES % (AUTO) 5 % (12-44); MEAN CORPUSCULAR HEMOGLOBIN 28 pg (25-34); MEAN CORPUSCULAR HGB CONC 32 g/dL (32-36); MEAN CORPUSCULAR VOLUME 88 fL (80-99); MONOCYTES % (AUTO) 1 % (0-12); NEUTROPHILS # (AUTO) 2.1 10^3/uL (1.8-7.8); NEUTROPHILS % (AUTO) 89 % (42-75); PLATELET COUNT 84 10^3/uL (130-400); WHITE BLOOD COUNT 2.4 10^3/uL (4.3-11.0)
[2022-12-16 10:13] LABS: CLARITY,URINE CLEAR; COLOR,URINE YELLOW; GLUCOSE, URINE (UA) NEGATIVE (NEGATIVE); PROTEIN,URINE 2+ (NEGATIVE)
[2022-12-16 10:14] LABS: AMORPHOUS SEDIMENT,UR MOD AMOR URATES /LPF; BACTERIA,URINE NEGATIVE /HPF; BILIRUBIN,URINE NEGATIVE (NEGATIVE); KETONES,URINE NEGATIVE (NEGATIVE); LEUKOCYTE ESTERASE ,URINE NEGATIVE (NEGATIVE); NITRITE,URINE NEGATIVE (NEGATIVE); RBC,URINE 0-2 /HPF; WBC,URINE 0-2 /HPF
[2022-12-16 10:20] LABS: ALBUMIN 4.4 GM/DL (3.2-4.5); BILIRUBIN,TOTAL 0.5 MG/DL (0.1-1.0); CREATININE SERUM 0.79 MG/DL (0.60-1.30); POTASSIUM 3.8 MMOL/L (3.6-5.0); TOTAL PROTEIN 6.9 GM/DL (6.4-8.2)
[2022-12-23 09:52] LABS: BASOPHILS # (AUTO) 0.2 10^3/uL (0.0-0.1); BASOPHILS % (AUTO) 2 % (0-10); EOSINOPHILS # (AUTO) 0.2 10^3/uL (0.0-0.3); EOSINOPHILS % (AUTO) 2 % (0-10); HEMATOCRIT 33 % (40-54); HEMOGLOBIN 10.5 g/dL (13.3-17.7); LYMPHOCYTES # (AUTO) 0.5 10^3/uL (1.0-4.0); LYMPHOCYTES % (AUTO) 4 % (12-44); MEAN CORPUSCULAR HEMOGLOBIN 29 pg (25-34); MEAN CORPUSCULAR HGB CONC 32 g/dL (32-36); MEAN CORPUSCULAR VOLUME 91 fL (80-99); MEAN PLATELET VOLUME 10.5 fL (9.0-12.2); MONOCYTES # (AUTO) 2.7 10^3/uL (0.0-1.0); MONOCYTES % (AUTO) 24 % (0-12); NEUTROPHILS # (AUTO) 0.8 10^3/uL (1.8-7.8); NEUTROPHILS % (AUTO) 7 % (42-75); PLATELET COUNT 138 10^3/uL (130-400); WHITE BLOOD COUNT 11.2 10^3/uL (4.3-11.0)
[2022-12-23 10:09] LABS: ALBUMIN 4.1 GM/DL (3.2-4.5); BILIRUBIN,TOTAL 0.9 MG/DL (0.1-1.0); CALCIUM 9.1 MG/DL (8.5-10.1); CREATININE SERUM 0.74 MG/DL (0.60-1.30); POTASSIUM 3.5 MMOL/L (3.6-5.0); TOTAL PROTEIN 6.5 GM/DL (6.4-8.2)
[2022-12-23 10:14] LABS: CLARITY,URINE SL CLOUDY; COLOR,URINE YELLOW
[2022-12-23 10:15] LABS: BILIRUBIN,URINE 1+ (NEGATIVE); GLUCOSE, URINE (UA) NEGATIVE (NEGATIVE); KETONES,URINE NEGATIVE (NEGATIVE); LEUKOCYTE ESTERASE ,URINE NEGATIVE (NEGATIVE); NITRITE,URINE NEGATIVE (NEGATIVE); PROTEIN,URINE TRACE (NEGATIVE)
[2022-12-23 10:16] LABS: BACTERIA,URINE NEGATIVE /HPF; RBC,URINE RARE /HPF; SQUAMOUS EPITHELIAL CELL,UR RARE /HPF; WBC,URINE RARE /HPF
[2022-12-29 09:05] VITALS: BP 126/78
[2022-12-29 09:24] LABS: BASOPHILS # (AUTO) 0.1 10^3/uL (0.0-0.1); BASOPHILS % (AUTO) 1 % (0-10); HEMOGLOBIN 10.1 g/dL (13.3-17.7); MEAN CORPUSCULAR VOLUME 92 fL (80-99)
[2022-12-29 09:26] LABS: EOSINOPHILS # (AUTO) 0.1 10^3/uL (0.0-0.3); EOSINOPHILS % (AUTO) 1 % (0-10); HEMATOCRIT 32 % (40-54); LYMPHOCYTES # (AUTO) 0.8 10^3/uL (1.0-4.0); LYMPHOCYTES % (AUTO) 7 % (12-44); MEAN CORPUSCULAR HEMOGLOBIN 29 pg (25-34); MEAN CORPUSCULAR HGB CONC 31 g/dL (32-36); MEAN PLATELET VOLUME 9.6 fL (9.0-12.2); MONOCYTES # (AUTO) 0.7 10^3/uL (0.0-1.0); MONOCYTES % (AUTO) 6 % (0-12); NEUTROPHILS # (AUTO) 8.5 10^3/uL (1.8-7.8); NEUTROPHILS % (AUTO) 73 % (42-75); PLATELET COUNT 51 10^3/uL (130-400); WHITE BLOOD COUNT 11.6 10^3/uL (4.3-11.0)
[2022-12-29 09:31] LABS: POTASSIUM 3.5 MMOL/L (3.6-5.0)
[2022-12-29 09:33] LABS: CALCIUM 8.8 MG/DL (8.5-10.1)
[2022-12-29 09:34] LABS: TOTAL PROTEIN 6.7 GM/DL (6.4-8.2)
[2022-12-29 09:36] LABS: BILIRUBIN,TOTAL 0.4 MG/DL (0.1-1.0)
[2022-12-29 09:37] LABS: CREATININE SERUM 0.75 MG/DL (0.60-1.30)
[2022-12-29 09:42] LABS: AMORPHOUS SEDIMENT,UR LARGE AMOR URATES /LPF; BACTERIA,URINE NEGATIVE /HPF; BILIRUBIN,URINE NEGATIVE (NEGATIVE); CLARITY,URINE CLOUDY; COLOR,URINE YELLOW; GLUCOSE, URINE (UA) NEGATIVE (NEGATIVE); KETONES,URINE NEGATIVE (NEGATIVE); LEUKOCYTE ESTERASE ,URINE NEGATIVE (NEGATIVE); NITRITE,URINE NEGATIVE (NEGATIVE); PH,URINE 6.5 (5-9); PROTEIN,URINE TRACE (NEGATIVE); SQUAMOUS EPITHELIAL CELL,UR 0-2 /HPF; WBC,URINE 0-2 /HPF
[~2022-12-30] VITALS: Ht 182.8 cm; Wt 73.2 kg
[~2022-12-30 07:38] MED LIST changes: -CYCLOPHOSPHAMIDE IV SCH; +DEXAMETHASONE SODIUM PHOSPHATE IV SCH; -DOXORUBICIN HCL IV SCH; +IFOSFAMIDE IV SCH; -MESNA IV SCH; -MESNA PO SCH; -NS IV 1000 ML (CANCER CTR) IV SCH; -PALONOSETRON HCL 0.25 MG, dexAMETHasone INJECTION 10 MG in NS (IVPB) 50 ML 50 ML IV SCH; -VINCRISTINE SULFATE IV SCH; -[UNRECOGNIZED DRUG - OTHER] IV SCH
[2022-12-30 08:54] LABS: BASOPHILS # (AUTO) 0.1 10^3/uL (0.0-0.1); BASOPHILS % (AUTO) 1 % (0-10); HEMOGLOBIN 10.6 g/dL (13.3-17.7)
[2022-12-30 08:56] LABS: EOSINOPHILS # (AUTO) 0.1 10^3/uL (0.0-0.3); EOSINOPHILS % (AUTO) 2 % (0-10); HEMATOCRIT 33 % (40-54); LYMPHOCYTES # (AUTO) 0.8 10^3/uL (1.0-4.0); LYMPHOCYTES % (AUTO) 10 % (12-44); MEAN CORPUSCULAR HEMOGLOBIN 29 pg (25-34); MEAN CORPUSCULAR HGB CONC 32 g/dL (32-36); MEAN CORPUSCULAR VOLUME 92 fL (80-99); MEAN PLATELET VOLUME 9.9 fL (9.0-12.2); MONOCYTES # (AUTO) 0.6 10^3/uL (0.0-1.0); MONOCYTES % (AUTO) 8 % (0-12); NEUTROPHILS # (AUTO) 5.5 10^3/uL (1.8-7.8); NEUTROPHILS % (AUTO) 69 % (42-75); PLATELET COUNT 48 10^3/uL (130-400)
== END 2023-01-01 | disposition home or self-care (01) ==
LOC: ONC 07:38
PROVIDERS: ATTEND Internal Medicine Hematology & Oncology
DX: Z51.11 Encounter for antineoplastic chemotherapy (principal); C7A.1 Malignant poorly differentiated neuroendocrine tumors
CPT/HCPCS: 36591; 80053; 81000; 85025; 96360; 96361; 96367; 96375; 96413; 96417; 96523; 99214

== ENCOUNTER → 2023-01-15 | Outpatient (CLI) | payer MEDICAID ==
[~2023-01-15] MED LIST changes: +CATHETER FLUSH 10 ML SYR IVP PRN; -DEXAMETHASONE SODIUM PHOSPHATE IV SCH; -FOSAPREPITANT (CANCER CENTER) 150 MG in NS (IVPB) CANCER CENTER ONLY 150 ML IV SCH; -HEParin (CENTRAL IV FLUSH) 500 UNIT/5 ML SYR IV PRN; -IFOSFAMIDE IV SCH; -NS IV SCH
--- NOTE | 2023-01-16 10:38 | Diagnostic Imaging Report ---
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 Serum blood glucose level at the time of injection is 84 mg/dL. Patient was administered 9.3 mCi F-18 FDG intravenously in the left antecubital location and PET imaging was performed from the top of skull to mid thighs. Noncontrast CT was also performed for attenuation correction and anatomic correlation. Comparison is made with prior PET/CT study from 11/24/2022. There is symmetric activity throughout the brain. Soft tissues of the neck are unremarkable. No mediastinal or hilar hypermetabolism is identified. No pulmonary parenchymal hypermetabolism is detected. There appears to be some hypermetabolism in the rind of soft tissues surrounding the spleen with an SUV max of 8.1, similar to prior. There is residual activity within the lanette hepatis as well as in the portacaval region as well as medial to the spleen measuring approximately 11.4 compared with 9.3 on prior. A significant hypermetabolism involving the omentum is similar to prior exam with SUV max of 11.8. No new areas of hypermetabolism are identified. There continues to be moderate ascites within the abdomen and pelvis. There is diffuse osseous activity again perhaps owing to treatment response. IMPRESSION: Overall very similar PET/CT study when compared with the prior exam from 11/24/2022. No new areas of hypermetabolism are identified. Dictated by: Dictated on workstation # [id number]
== END ==
LOC: RAD 09:58
PROVIDERS: ATTEND Internal Medicine Hematology & Oncology
DX: C49.9 Malignant neoplasm of connective and soft tissue, unspecified (principal)
CPT/HCPCS: 82947

== ENCOUNTER 2023-02-02 07:49 | Outpatient (RCR) | payer MEDICAID, OTHER ==
[~2023-02-02] VITALS: Ht 182.9 cm; Wt 74.9 kg
[~2023-02-02 07:49] MED LIST changes: -CATHETER FLUSH 10 ML SYR IVP PRN
[2023-02-02] MEDS ORDERED: NS IV 1000 ML (CANCER CTR) IV SCH (07:57)
[2023-02-02] MEDS ORDERED: VINCRISTINE SULFATE IV SCH (07:57)
[2023-02-02] MEDS ORDERED: FOSAPREPITANT (CANCER CENTER) 150 MG in NS (IVPB) CANCER CENTER ONLY 150 ML IV SCH (07:57)
[2023-02-02] MEDS ORDERED: PALONOSETRON HCL 0.25 MG, dexAMETHasone sodium phosphate 10 MG in NS (IVPB) 50 ML 50 ML IV SCH (07:57)
[2023-02-02] MEDS ORDERED: [UNRECOGNIZED DRUG - OTHER] IV SCH (07:57)
[2023-02-02] MEDS ORDERED: HEParin (CENTRAL IV FLUSH) 500 UNIT/5 ML SYR IV PRN (07:57)
[2023-02-02] MEDS ORDERED: NS IV SCH ×3 (07:57)
[2023-02-02] MEDS ORDERED: MESNA IV SCH (07:57)
[2023-02-02] MEDS ORDERED: MESNA PO SCH (07:57)
[2023-02-02] MEDS ORDERED: DOXORUBICIN HCL IV SCH (07:57)
[2023-02-02] MEDS ORDERED: CYCLOPHOSPHAMIDE IV SCH (07:57)
[2023-02-02 09:05] VITALS: BP 116/78
[2023-02-02 09:24] LABS: HEMOGLOBIN 11.4 g/dL (13.3-17.7); MEAN CORPUSCULAR VOLUME 95 fL (80-99); MEAN PLATELET VOLUME 10.7 fL (9.0-12.2)
[2023-02-02 09:26] LABS: BASOPHILS # (AUTO) 0.1 10^3/uL (0.0-0.1); BASOPHILS % (AUTO) 2 % (0-10); EOSINOPHILS # (AUTO) 0.1 10^3/uL (0.0-0.3); EOSINOPHILS % (AUTO) 2 % (0-10); HEMATOCRIT 35 % (40-54); LYMPHOCYTES # (AUTO) 0.4 10^3/uL (1.0-4.0); LYMPHOCYTES % (AUTO) 9 % (12-44); MEAN CORPUSCULAR HEMOGLOBIN 31 pg (25-34); MEAN CORPUSCULAR HGB CONC 32 g/dL (32-36); MONOCYTES # (AUTO) 0.4 10^3/uL (0.0-1.0); MONOCYTES % (AUTO) 10 % (0-12); NEUTROPHILS # (AUTO) 3.3 10^3/uL (1.8-7.8); NEUTROPHILS % (AUTO) 77 % (42-75); PLATELET COUNT 98 10^3/uL (130-400); WHITE BLOOD COUNT 4.3 10^3/uL (4.3-11.0)
[2023-02-02 09:30] LABS: BILIRUBIN,URINE NEGATIVE (NEGATIVE); CLARITY,URINE CLEAR; COLOR,URINE YELLOW; GLUCOSE, URINE (UA) NEGATIVE (NEGATIVE); KETONES,URINE NEGATIVE (NEGATIVE); LEUKOCYTE ESTERASE ,URINE NEGATIVE (NEGATIVE); NITRITE,URINE NEGATIVE (NEGATIVE); PROTEIN,URINE NEGATIVE (NEGATIVE)
[2023-02-02 09:32] LABS: BACTERIA,URINE NEGATIVE /HPF
[2023-02-02 09:52] LABS: ALBUMIN 4.2 GM/DL (3.2-4.5); BILIRUBIN,TOTAL 0.4 MG/DL (0.1-1.0); CALCIUM 9.2 MG/DL (8.5-10.1); CREATININE SERUM 0.8 MG/DL (0.60-1.30); POTASSIUM 3.7 MMOL/L (3.6-5.0); TOTAL PROTEIN 7.2 GM/DL (6.4-8.2)
[2023-02-24 09:41] LABS: HEMOGLOBIN 11.9 g/dL (13.3-17.7); MEAN CORPUSCULAR VOLUME 96 fL (80-99); MEAN PLATELET VOLUME 9.6 fL (9.0-12.2)
[2023-02-24 09:43] LABS: BASOPHILS # (AUTO) 0.1 10^3/uL (0.0-0.1); BASOPHILS % (AUTO) 3 % (0-10); EOSINOPHILS # (AUTO) 0.1 10^3/uL (0.0-0.3); EOSINOPHILS % (AUTO) 1 % (0-10); HEMATOCRIT 37 % (40-54); LYMPHOCYTES # (AUTO) 0.4 10^3/uL (1.0-4.0); LYMPHOCYTES % (AUTO) 9 % (12-44); MEAN CORPUSCULAR HEMOGLOBIN 31 pg (25-34); MEAN CORPUSCULAR HGB CONC 32 g/dL (32-36); MONOCYTES # (AUTO) 0.5 10^3/uL (0.0-1.0); MONOCYTES % (AUTO) 12 % (0-12); NEUTROPHILS % (AUTO) 74 % (42-75); PLATELET COUNT 116 10^3/uL (130-400)
[2023-02-24 10:06] LABS: ALBUMIN 4.3 GM/DL (3.2-4.5); BILIRUBIN,TOTAL 0.3 MG/DL (0.1-1.0); CALCIUM 9.3 MG/DL (8.5-10.1); CREATININE SERUM 0.84 MG/DL (0.60-1.30); POTASSIUM 3.8 MMOL/L (3.6-5.0); TOTAL PROTEIN 6.9 GM/DL (6.4-8.2)
[2023-02-24 10:36] LABS: AMORPHOUS SEDIMENT,UR MOD AMOR URATES /LPF; BACTERIA,URINE NEGATIVE /HPF; BILIRUBIN,URINE NEGATIVE (NEGATIVE); CLARITY,URINE CLEAR; COLOR,URINE YELLOW; GLUCOSE, URINE (UA) NEGATIVE (NEGATIVE); KETONES,URINE NEGATIVE (NEGATIVE); LEUKOCYTE ESTERASE ,URINE NEGATIVE (NEGATIVE); NITRITE,URINE NEGATIVE (NEGATIVE); PH,URINE 6.5 (5-9); PROTEIN,URINE NEGATIVE (NEGATIVE); WBC,URINE 0-2 /HPF
== END 2023-02-23 11:54 | disposition home or self-care (01) ==
LOC: ONC 07:49
PROVIDERS: ATTEND Internal Medicine Hematology & Oncology
DX: Z51.11 Encounter for antineoplastic chemotherapy (principal); Z45.2 Encounter for adjustment and management of vascular access device; C7A.1 Malignant poorly differentiated neuroendocrine tumors
CPT/HCPCS: 36591; 80053; 81000; 85025; 96367; 96375; 96413; 96417

== ENCOUNTER 2023-02-24 08:53 | Outpatient (RCR) | payer MEDICAID, OTHER ==
[~2023-02-24] VITALS: Ht 182.9 cm; Wt 76.2 kg
[~2023-02-24 08:53] MED LIST changes: +CYCLOPHOSPHAMIDE IV SCH; +DOXORUBICIN HCL IV SCH; +FOSAPREPITANT (CANCER CENTER) 150 MG in NS (IVPB) CANCER CENTER ONLY 150 ML IV SCH; +HEParin (CENTRAL IV FLUSH) 500 UNIT/5 ML SYR IV PRN; +MESNA IV SCH; +MESNA PO SCH; +NS IV 1000 ML (CANCER CTR) IV SCH; +NS IV SCH; +PALONOSETRON HCL 0.25 MG, dexAMETHasone sodium phosphate 10 MG in NS (IVPB) 50 ML 50 ML IV SCH; +VINCRISTINE SULFATE IV SCH; +[UNRECOGNIZED DRUG - OTHER] IV SCH
[2023-02-24 10:02] VITALS: BP 112/77
== END 2023-03-03 11:36 | disposition home or self-care (01) ==
LOC: ONC 08:53
PROVIDERS: ATTEND Internal Medicine Hematology & Oncology
DX: Z51.11 Encounter for antineoplastic chemotherapy (principal); Z45.2 Encounter for adjustment and management of vascular access device; C7A.1 Malignant poorly differentiated neuroendocrine tumors; C79.51 Secondary malignant neoplasm of bone
CPT/HCPCS: 36591; 96367; 96375; 96413; 96417

== ENCOUNTER → 2023-03-09 | Outpatient (CLI) | payer MEDICAID ==
[~2023-03-09] MED LIST changes: +CATHETER FLUSH 10 ML SYR IVP PRN; -CYCLOPHOSPHAMIDE IV SCH; -DOXORUBICIN HCL IV SCH; -FOSAPREPITANT (CANCER CENTER) 150 MG in NS (IVPB) CANCER CENTER ONLY 150 ML IV SCH; -HEParin (CENTRAL IV FLUSH) 500 UNIT/5 ML SYR IV PRN; -MESNA IV SCH; -MESNA PO SCH; -NS IV 1000 ML (CANCER CTR) IV SCH; -NS IV SCH; -PALONOSETRON HCL 0.25 MG, dexAMETHasone sodium phosphate 10 MG in NS (IVPB) 50 ML 50 ML IV SCH; -VINCRISTINE SULFATE IV SCH; -[UNRECOGNIZED DRUG - OTHER] IV SCH
--- NOTE | 2023-03-10 15:15 | Diagnostic Imaging Report ---
INDICATION: Subsequent staging neoplasm of connective and soft tissue. COMPARISON is made with prior PET/CT study from 01/15/2023. Serum blood glucose level at the time of injection is 88 mg/dL. The patient was administered 10.8 mCi F-18 FDG intravenously in the left antecubital location and PET imaging was performed from the top of the skull to mid thighs. Noncontrast CT was also performed for attenuation correction and anatomic correlation. There is symmetric activity throughout the brain. Soft tissues of the neck are unremarkable. No mediastinal or hilar hypermetabolism is identified. No pulmonary parenchymal hypermetabolism is detected. The rind of hypermetabolism surrounding the spleen as well as the activity medial to the spleen appears similar. SUV max of the activity medial to the spleen is approximately 7.6, unchanged. There continues to be hypermetabolism in the lanette hepatis and portacaval region, similar to prior exam. Diffuse abnormal uptake involving the omentum of the anterior abdomen appears similar to prior exam, as well. No new foci are detected. There continues to be diffuse osseous uptake, likely on the basis of treatment response. IMPRESSION: Overall stable PET/CT study when compared with prior exam from 01/15/2023. Dictated by: Dictated on workstation # [id number]
== END ==
LOC: RAD 12:30
PROVIDERS: ATTEND Internal Medicine Hematology & Oncology
DX: C49.9 Malignant neoplasm of connective and soft tissue, unspecified (principal)
CPT/HCPCS: 82947

== ENCOUNTER 2023-03-20 08:37 | Outpatient (RCR) | payer MEDICAID, OTHER ==
[2023-03-16 09:13] VITALS: BP 126/72
[2023-03-16 09:13] LABS: BASOPHILS # (AUTO) 0.1 10^3/uL (0.0-0.1); BASOPHILS % (AUTO) 2 % (0-10); EOSINOPHILS % (AUTO) 1 % (0-10); HEMATOCRIT 37 % (40-54); HEMOGLOBIN 12.2 g/dL (13.3-17.7); LYMPHOCYTES # (AUTO) 0.3 10^3/uL (1.0-4.0); LYMPHOCYTES % (AUTO) 8 % (12-44); MEAN CORPUSCULAR HEMOGLOBIN 31 pg (25-34); MEAN CORPUSCULAR HGB CONC 33 g/dL (32-36); MEAN CORPUSCULAR VOLUME 94 fL (80-99); MONOCYTES # (AUTO) 0.4 10^3/uL (0.0-1.0); MONOCYTES % (AUTO) 12 % (0-12); NEUTROPHILS # (AUTO) 2.6 10^3/uL (1.8-7.8); NEUTROPHILS % (AUTO) 77 % (42-75); WHITE BLOOD COUNT 3.3 10^3/uL (4.3-11.0)
[2023-03-16 09:14] LABS: PLATELET COUNT 105 10^3/uL (130-400)
[2023-03-16 09:30] LABS: ALBUMIN 4.3 GM/DL (3.2-4.5); BILIRUBIN,TOTAL 0.3 MG/DL (0.1-1.0); CALCIUM 9.3 MG/DL (8.5-10.1); CREATININE SERUM 0.81 MG/DL (0.60-1.30); POTASSIUM 3.6 MMOL/L (3.6-5.0); TOTAL PROTEIN 6.8 GM/DL (6.4-8.2)
[2023-03-16] MEDS: NS IV 1000 ML (CANCER CTR) IV SCH (09:31)
[2023-03-16] MEDS: FOSAPREPITANT (CANCER CENTER) 150 MG in NS (IVPB) CANCER CENTER ONLY 150 ML IV SCH (09:31)
[2023-03-16 09:41] LABS: CLARITY,URINE SL CLOUDY; COLOR,URINE YELLOW; PROTEIN,URINE NEGATIVE (NEGATIVE)
[2023-03-16 09:42] LABS: BACTERIA,URINE NEGATIVE /HPF; BILIRUBIN,URINE NEGATIVE (NEGATIVE); GLUCOSE, URINE (UA) NEGATIVE (NEGATIVE); KETONES,URINE NEGATIVE (NEGATIVE); LEUKOCYTE ESTERASE ,URINE NEGATIVE (NEGATIVE); NITRITE,URINE NEGATIVE (NEGATIVE); RBC,URINE RARE /HPF; SQUAMOUS EPITHELIAL CELL,UR RARE /HPF; WBC,URINE RARE /HPF
[2023-03-16 09:43] LABS: AMORPHOUS SEDIMENT,UR LARGE AMOR PHOSPHATE /LPF
[2023-03-16] MEDS: PALONOSETRON HCL 0.25 MG, dexAMETHasone sodium phosphate 10 MG in NS (IVPB) 50 ML 50 ML IV SCH (09:57)
[2023-03-16] MEDS: MESNA IV SCH (10:13)
[2023-03-16] MEDS: NS IV SCH ×2 (10:13→10:34)
[2023-03-16] MEDS: IFOSFAMIDE IV SCH (10:34)
[2023-03-16] MEDS: MESNA PO SCH (10:35)
[2023-03-16] MEDS: ETOPOSIDE IV SCH (11:33)
[2023-03-16] MEDS: NORMAL SALINE IV SCH (11:33)
[2023-03-17 08:50] VITALS: BP 123/67
[2023-03-17] MEDS: NS IV SCH ×3 (08:57→09:33)
[2023-03-17] MEDS: NS IV 1000 ML (CANCER CTR) IV SCH (08:57)
[2023-03-17] MEDS: DEXAMETHASONE SODIUM PHOSPHATE IV SCH (08:57)
[2023-03-17] MEDS: MESNA IV SCH (09:15)
[2023-03-17] MEDS: IFOSFAMIDE IV SCH (09:33)
[2023-03-17] MEDS: MESNA PO SCH (09:49)
[2023-03-17] MEDS: ETOPOSIDE IV SCH (10:33)
[2023-03-17] MEDS: NORMAL SALINE IV SCH (10:33)
[2023-03-18 08:50] VITALS: BP 106/64
[2023-03-18] MEDS: PALONOSETRON HCL 0.25 MG, dexAMETHasone sodium phosphate 10 MG in NS (IVPB) 50 ML 50 ML IV SCH (09:00)
[2023-03-18] MEDS: NS IV 1000 ML (CANCER CTR) IV SCH (09:00)
[2023-03-18] MEDS: NS IV SCH ×2 (09:25→09:42)
[2023-03-18] MEDS: MESNA IV SCH (09:25)
[2023-03-18] MEDS: IFOSFAMIDE IV SCH (09:42)
[2023-03-18] MEDS: MESNA PO SCH (10:15)
[2023-03-18] MEDS: NORMAL SALINE IV SCH (10:58)
[2023-03-18] MEDS: ETOPOSIDE IV SCH (10:58)
[2023-03-19] MEDS: NS IV 1000 ML (CANCER CTR) IV SCH ×2 (09:12)
[2023-03-19] MEDS: DEXAMETHASONE SODIUM PHOSPHATE IV SCH (09:13)
[2023-03-19] MEDS: NS IV SCH ×3 (09:13→09:49)
[2023-03-19 09:19] VITALS: BP 119/68
[2023-03-19] MEDS: MESNA IV SCH (09:32)
[2023-03-19] MEDS: IFOSFAMIDE IV SCH (09:49)
[2023-03-19] MEDS: MESNA PO SCH (09:49)
[2023-03-19] MEDS: NORMAL SALINE IV SCH ×2 (11:04→11:07)
[2023-03-19] MEDS: ETOPOSIDE IV SCH ×2 (11:04→11:07)
[~2023-03-20] VITALS: Ht 182.9 cm; Wt 77.0 kg
[~2023-03-20 08:37] MED LIST changes: -CATHETER FLUSH 10 ML SYR IVP PRN; +HEParin (CENTRAL IV FLUSH) 500 UNIT/5 ML SYR IV PRN
[2023-03-20 08:38] VITALS: BP 110/71
[2023-03-20] MEDS: FOSAPREPITANT (CANCER CENTER) 150 MG in NS (IVPB) CANCER CENTER ONLY 150 ML IV SCH (08:44)
[2023-03-20] MEDS: NS IV 1000 ML (CANCER CTR) IV SCH ×2 (08:44)
[2023-03-20] MEDS: NS IV SCH ×3 (09:08→09:42)
[2023-03-20] MEDS: DEXAMETHASONE SODIUM PHOSPHATE IV SCH (09:08)
[2023-03-20] MEDS: MESNA IV SCH (09:24)
[2023-03-20] MEDS: IFOSFAMIDE IV SCH (09:42)
[2023-03-20] MEDS: MESNA PO SCH (09:46)
[2023-03-20] MEDS: ETOPOSIDE IV SCH (10:46)
[2023-03-20] MEDS: NORMAL SALINE IV SCH (10:46)
== END 2023-04-02 | disposition home or self-care (01) ==
LOC: ONC 08:37
PROVIDERS: ATTEND Internal Medicine Hematology & Oncology
DX: Z51.11 Encounter for antineoplastic chemotherapy (principal); Z45.2 Encounter for adjustment and management of vascular access device; C7A.1 Malignant poorly differentiated neuroendocrine tumors
CPT/HCPCS: 36591; 80053; 81000; 83735; 85025; 96367; 96375; 96413; 96417